=== PATIENT | female | born 1985 | race Caucasian/White ===

== ENCOUNTER → 2017-09-13 | Outpatient (CLI) | payer BC, OTHER ==
[~2017-09-13] MED LIST: DOCU100 PO; Evening Primro1 EACH PO; IBUP800 PO; LABE100 PO; OXYACE5T PO; Percocet 5-3251 EACH PO; SLOW FE142 MG PO; Verotin-Gr Cap1 EACH PO; Zofran Odt8 MG SL
== END | disposition home or self-care (01) ==
LOC: LAB SHORT 17:40 → LAB EV 17:40
DX: R10.9 Unspecified abdominal pain (principal)
CPT/HCPCS: 87086

== ENCOUNTER 2018-12-12 07:07 | Day surgery (SDC) | payer BC ==
[2018-12-11 14:50] LABS: Hematocrit 40.5 % (33.0-51.0); Hemoglobin 13.7 g/dL (11.5-16.0); Mean Corpuscular HGB Conc 33.8 g/dL (31.5-36.5); Mean Corpuscular Volume 89 fL (80-100); Mean Platelet Volume 11.2 fL (9.1-12.4); Platelet Count 271 K/mm3 (150-400); RDW Coefficient Variation 12.1 % (11.7-14.2); RDW Standard Deviation 39.2 fL (35.1-46.3); Red Blood Cell Count 4.57 M/mm3 (3.80-5.20); White Blood Cell Count 9.32 K/mm3 (4.00-11.30)
[2018-12-11 15:19] LABS: Anion Gap 4 mmol/L (6-16); Blood Urea Nitrogen 11 mg/dL (8-24); Bun/Creatinine Ratio 12.4 (12.0-20.0); CO2, Blood 22 mmol/L (21-32); Chloride, Blood 111 mmol/L (98-108); Creatinine, Blood 0.89 mg/dL (0.40-1.00); Glomerular Filtration Rate >60 (60-); Glucose, Blood 103 mg/dL (70-99); Sodium, Blood 137 mmol/L (136-145)
[~2018-12-12] VITALS: Ht 168 cm; Wt 107.6 kg
[2018-12-12] MEDS ORDERED: METO50ER PO (07:22)
[2018-12-12] MEDS ORDERED: Budeprion Sr150 MG PO (07:24)
--- NOTE | 2018-12-12 07:54 | NUR ---
History, Chart, Medications and Allergies reviewed before start of procedure.Patient confirms NPO status and agrees with scheduled surgery. Lungs clear T/O to Auscultation. Patient reports completing Chlorhexadine shower X2 prior to admission to hospital.Surgical site prepped with 2% Chlorhexidine cloth wipe.
--- NOTE | 2018-12-12 13:43 | NUR ---
ARRIVED FROM PACU VIA [facility], Chat[place] HIGGINS&OX3, C/O MILD NAUSEA, REPORTS PAIN IS "GOOD" AT THIS TIME, ORIENTED TO ROOM LAYOUT AND CALL SYSTEM, AT BEDSIDE, MONITOR VS AND ANY CHANGES, MEDICATE FOR PAIN PRN.
--- NOTE | 2018-12-13 04:36 | NUR ---
PATIENT HAS BEEN UP IN THE [address] WAY WITH STAFF AND WALKING. PAIN HAS BEEN CONTROLED WITH PAIN MEDICATIONS. ABDOMEN IS MILDLY DISTENDED, WITH 4 LAP BANDAGES OVER 4 QUADRANTS. ALL DRESSINGS ARE CLEAR. PATIENT ALSO HAS A LUCIO PAD THAT HAD HAD A SMALL AMOUNT OF BLOOD ON IT. URINARY CATH WILL BE REMOVED IN AM, CURRENTLY DRAINING CLEAR URINE. HAS STAYED THE NIGHT TONIGHT.
[2018-12-13 05:05] LABS: BASOPHILS ABSOLUTE AUTO 0.02 K/mm3 (0.00-0.23); BASOPHILS PERCENT AUTO 0 % (0-2); EOSINOPHILS ABSOLUTE AUTO 0.02 K/mm3 (0.00-0.68); EOSINOPHILS PERCENT AUTO 0 % (0-6); Hemoglobin 12.2 g/dL (11.5-16.0); IMMATURE GRAN PERCENT AUTO 1 % (0-1); LYMPHOCYTES PERCENT AUTO 14 % (21-46); MONOCYTES ABSOLUTE AUTO 0.79 K/mm3 (0.16-1.47); MONOCYTES PERCENT AUTO 5 % (4-13); Mean Corpuscular Volume 91 fL (80-100); Mean Platelet Volume 11.1 fL (9.1-12.4); NEUTROPHILS ABSOLUTE AUTO 12.97 K/mm3 (1.96-9.15); NEUTROPHILS PERCENT AUTO 80 % (41-73); Platelet Count 263 K/mm3 (150-400); RDW Coefficient Variation 12.1 % (11.7-14.2); RDW Standard Deviation 40.8 fL (35.1-46.3); Red Blood Cell Count 4.06 M/mm3 (3.80-5.20)
--- NOTE | 2018-12-13 06:47 | NUR ---
URINARY CATHETER REMOVED. PATIENT TOLERATED PROCEDURE WELL.
[2018-12-13] MEDS ORDERED: Percocet 5-3251 EACH PO (10:42)
[2018-12-13] MEDS ORDERED: IBUP800 PO (10:43)
[2018-12-13] MEDS ORDERED: PROM25 PO (10:43)
[2018-12-13] MEDS ORDERED: DOCU100 PO (10:44)
[2018-12-13] MEDS ORDERED: Milk Of Ma400 MG/5 M PO (10:52)
[2018-12-13] MEDS ORDERED: SIME80CH PO (10:54)
--- NOTE | 2018-12-13 11:14 | NUR ---
DISCHARGE PT EDUCATED ON AND RECEIVED PRINTED DC INSTRUCTIONS AND VERB AN UNDERSTANDING. RX FAXED OVER TO [facility] PER PT REQUEST. HARD RX FOR PERCOCET GIVEN TO PT. IV DC'D. PT WAITING TO PASS GAS BEFORE DISCHARGE PER DR. MCCULLOUGH.
--- NOTE | 2018-12-13 12:54 | NUR ---
PT REPORTS PASSING GAS
== END 2018-12-13 14:01 | disposition home or self-care (01) ==
LOC: ORSCMMR 07:07 → ORD 07:30 → ORSCMMR 08:30 → SURS 13:37 → ORSCMMR 12-13 14:01
PROVIDERS: Obstetrics & Gynecology
PROC: 0UT9FZZ Resection of Uterus, Via Natural or Artificial Opening With Percutaneous Endoscopic Assistance (ICD-10-PCS; principal; 2018-12-12 08:30)
PROC: 0UT7FZZ Resection of Bilateral Fallopian Tubes, Via Natural or Artificial Opening With Percutaneous Endoscopic Assistance (ICD-10-PCS; principal; 2018-12-12 08:30)
DX: N92.1 Excessive and frequent menstruation with irregular cycle (principal); N94.6 Dysmenorrhea, unspecified; N80.3 Endometriosis of pelvic peritoneum; Q51.3 Bicornate uterus; N72 Inflammatory disease of cervix uteri; I10 Essential (primary) hypertension; F43.10 Post-traumatic stress disorder, unspecified; E66.01 Morbid (severe) obesity due to excess calories; Z68.38 Body mass index [BMI] 38.0-38.9, adult; Z79.899 Other long term (current) drug therapy
CPT/HCPCS: 36415; 80048; 84703; 85025; 85027; 86850; 86900; 86901; 88307; J0690; J1100; J1650; J1885; J2250; J2405; J2704; J2710; J3010; J7030; J7120

== ENCOUNTER 2019-06-06 16:47 | Emergency (ER) | payer BC ==
[~2019-06-06] VITALS: Ht 167.6 cm; Wt 108.9 kg
[~2019-06-06 16:47] MED LIST changes: +Budeprion Sr150 MG PO; +METO50ER PO; +Milk Of Ma400 MG/5 M PO; +PROM25 PO; +SIME80CH PO
[2019-06-06] MEDS ORDERED: CLEAR EYES COOL15 ML BOTHEYES (17:38)
== END 2019-06-06 17:43 | disposition home or self-care (01) ==
LOC: ER 16:47
DX: B30.9 Viral conjunctivitis, unspecified (principal); F41.9 Anxiety disorder, unspecified; Z79.899 Other long term (current) drug therapy; Z87.891 Personal history of nicotine dependence
CPT/HCPCS: 99282